=== PATIENT | male | born 1945 | race Caucasian/White ===

== ENCOUNTER → 2025-02-27 | Outpatient (CLI) | payer MEDICARE, SELFPAY ==
--- NOTE | 2025-02-27 10:26 | XR_ITS ---
Examination: Lumbar spine, 5 views Technique: Lumbar spine AP, lateral, coned lateral lower lumbar spine, bilateral obliques 5 views Exam date and time: February 27, 2025 1101 hours INDICATIONS: Low back pain beginning one year ago. FINDINGS: Lumbar levoscoliosis 15 degrees Prominent osteopenia Diffuse advanced facet arthropathy No lumbar fracture Diffuse advanced lumbar degenerative disc disease IMPRESSION: Diffuse advanced lumbar degenerative disc disease
--- NOTE | 2025-02-27 10:26 | XR_ITS ---
EXAMINATION: Cervical spine, 5 views Technique: Cervical spine AP, AP odontoid, lateral, bilateral obliques, 5 views Exam date and time: February 27, 2025 1052 hours INDICATIONS: Neck pain beginning one year ago. FINDINGS: Satisfactory alignment cervical vertebral bodies No cervical fracture. Intact odontoid. Moderate narrowing C3-C4, C5-C6, C6-C7 with moderate bilateral neural foraminal stenosis Incidental note right carotid vascular stent IMPRESSION: Moderate degenerative disc disease C3-C4, C5-C6, C6-C7
--- NOTE | 2025-02-27 10:49 | XR_ITS ---
Examination: Cervical spine 2 views TECHNIQUE: AP lateral cervical spine 2 views Date and time: February 27, 2025 11:11 AM INDICATIONS: Neck pain beginning one year ago. FINDINGS: Right carotid stent Moderate to advanced degenerative disc disease C3-C4, C5-C6, C6-C7 Intact odontoid No cervical fracture IMPRESSION: Moderate to advanced degenerative disc disease C3-C4, C5-C6, C6-C7
== END | disposition home or self-care (01) ==
LOC: SDIM 10:03
PROVIDERS: PCP Internal Medicine; Referring Provider Orthopaedic Surgery; Visit Provider Orthopaedic Surgery
DX: M50.31 Other cervical disc degeneration, high cervical region (principal); M51.360 Other intervertebral disc degeneration, lumbar region with discogenic back pain only
CPT/HCPCS: 72040; 72050; 72052; 72110